=== PATIENT | male | born 1985 | race Two or more races ===

== ENCOUNTER 2023-03-28 20:24 | Emergency (ER) | payer OTHER ==
[~2023-03-28] VITALS: Ht 165.1 cm; Wt 78.0 kg
[2023-03-28 20:51] VITALS: BP 158/100; O2SAT 98
[2023-03-28] MEDS ORDERED: AMOX1TAB16 MT (21:26)
[2023-03-28] MEDS: ACETAMINOPHEN 325MG TABLET PO STA (21:52)
[2023-03-28] MEDS: BACITRACIN ZINC OINT UDPKT TOP ONE (22:07)
[2023-03-28] MEDS: TETANUS, DIPHTHERIA, PERTUSSIS VAC/PF 0.5ML (>10YR OLD) IM ONE (22:08)
[2023-03-28 22:24] VITALS: PULSE 79; RESP 18; TEMP 98.1
== END 2023-03-28 22:24 | disposition home or self-care (01) ==
LOC: ER 20:24
DX: S61.452A Open bite of left hand, initial encounter (principal); S61.451A Open bite of right hand, initial encounter; W54.0XXA Bitten by dog, initial encounter; Y93.89 Activity, other specified; Y92.89 Other specified places as the place of occurrence of the external cause; Y99.8 Other external cause status
CPT/HCPCS: 90715; 90471; 99283; Z7610